=== PATIENT | female | born 1945 | race Caucasian/White ===

== ENCOUNTER 2022-03-27 13:18 | Emergency (ER) | payer MEDICARE, MEDICAID, SELFPAY ==
[2022-03-27 14:07] VITALS: BP 173/77; PULSE 106; RESP 18; TEMP 36.3; O2SAT 98; BMI 34.0
--- NOTE | 2022-03-27 16:50 | ED.WOUNDLAC ---
HPI - Wound/Laceration General Chief Complaint: Wound/Laceration Stated Complaint: post surgery, wound opened Time Seen by Provider: 03/27/22 16:31 Source: patient and family Mode of arrival: wheelchair Limitations: no limitations History of Present Illness HPI narrative: 76-year-old female who presents with wound to the left leg. 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 Intermittently over the last 3 years the wound has opened. Three weeks ago they noticed some opening of the wound to the left lower leg. There is some pain around the site. Patient denies any fevers, chills, numbness or tingling of the extremity. Family tells me that they moved her here from [place] in the last few weeks and the patient has no insurance or primary care doctor. Related Data Previous Rx's Medication Instructions Recorded doxycycline monohydrate 100 mg 100 mg PO BID #20 tabs 03/27/22 tablet Allergies Allergy/AdvReac Type Severity Reaction Status Date / Time No Known Allergies Allergy Verified 03/27/22 14:07 Review of Systems Review of Systems: Yes all other systems are reviewed and are negative Constitutional: Constitutional: Reports no additional constitutional complaints, Denies body ache(s), Denies chills, Denies fever(s), Denies headache(s) and Denies weakness Eyes: Eyes: Reports no additional eye complaints and Denies change in vision ENT: Reports system reviewed and no additional complaints, except as documented, Denies dizziness, Denies headache(s), Denies nasal congestion, Denies nasal discharge and Denies neck pain Cardiovascular: Cardiovascular: Reports no additional cardiovascular complaints, Denies chest pain, Denies leg edema and Denies dyspnea Respiratory: Respiratory: Reports no additional respiratory complaints, Denies cough and Denies dyspnea Gastrointestinal: Gastrointestinal: Reports no additional gastrointestinal complaints, Denies abdominal pain, Denies diarrhea, Denies nausea and Denies vomiting Genitourinary: Genitourinary: Reports no additional female genitourinary complaints and Denies urinary incontinence Musculoskeletal: Musculoskeletal: Reports no additional musculoskeletal complaints, Denies back pain, Denies arthralgias, Denies joint swelling, Denies neck pain, Denies numbness and Denies tingling Integumentary/Breasts: Skin/Breast: Reports system reviewed and no additional complaints, except as docu, Denies rash and Reports wounds Neurologic: Reports system reviewed and no additional complaints, except as documented, Denies Abnormal speech present, Denies dizziness, Denies headache(s), Denies numbness, Denies tingling and Denies weakness PMFSH Past Medical History Attestation statement: The following information was validated with the patient. Source: old records reviewed and nursing notes reviewed Social History Social History Advance Directives: No Advance Directives Information Provided: No Physical Exam Vital Signs: Vital Signs: Last Vital Signs Temp 97.4 F 03/27/22 14:07 Pulse 106 H 03/27/22 14:07 Resp 18 03/27/22 14:07 BP 173/77 H 03/27/22 14:07 Pulse Ox 98 03/27/22 14:07 O2 Del Method 03/27/22 14:07 BMI result Body Mass Index 34.0 Const: General: cooperative, healthy appearing, comfortable and no acute distress Orientation/consciousness: patient oriented x3 Limitations: no limitations HEENT: Head: Yes normal to inspection Ears: hearing grossly normal bilaterally General nose exam: Normal external nose present Face and sinus: Yes normal facial exam Mouth: Normal oral and palatal mucosa present Throat: Yes posterior oropharynx normal Eyes: General: appearance normal, both eyes and all related structures Pupils: Equal, round and reactive pupils present Neck: Neck: Yes normal visual inspection Chest: Chest palpation & inspection: normal inspection of the chest Resp: Effort & Inspection: normal respiratory effort Auscultation: clear to auscultation bilaterally Cardio: Rate: regular rate Rhythm: regular rhythm Peripheral pulses: Peripheral pulses 2+ throughout GI: Inspection: Yes normal to inspection Palpation (GI): Soft to palpation and nontender Auscultation: normal bowel sounds Back/Spine/Pelvis: Thoracic/Lumbar Spine: thoracic and lumbar spine normal to inspection Skin: General skin exam: no rashes or lesions noted Neuro: General: patient oriented x3, no focal motor deficits and normal sensation to monofilament Cranial nerves: Yes Equal, round and reactive pupils present Cognition (Neuro): normal cognition Speech: No Abnormal speech present Gait exam (Neuro): Normal gait present Motor exam (neuro): 5/5 motor strength present throughout Extrem: Other: No tenderness of the calf or foot. Palpable DP and PT pulses. Full range of motion of the affected joint. No warmth noted. NV intact distally MDM - Wound/Laceration MDM Narrative Medical decision making narrative: 76-year-old female here with a wound to the left lower leg with previous history of chronic wound with wound VAC and subsequent skin graft. There is some local erythema and tenderness around the wound. Therefore patient placed on antibiotics. She has no systemic signs or symptoms concerning for infection. She is well-appearing. She would benefit from wound care exceptionally a wound care clinic. Unfortunately she does not have insurance or primary care doctor since her daughter recently moved her here. Therefore she was given information on [employer] application and the financial services sales representative number. She plans on doing this tomorrow. I did review worrisome signs and symptoms with her and when to return to the emergency room. Comfortable plan for discharge home. Medical Records Attestation: I reviewed the patient's medical records. Lab Data Attestation: I reviewed the patient's lab results. Discharge Plan Discharge Clinical Impression: Leg wound, left Patient Disposition: Home, Self-Care Instructions: Wound Infection (ED), Acute Wounds (ED) Additional Instructions: Apply topical antibiotic ointment and keep the wound clean and dry Take the antibiotic with food. Follow-up with financial services sales representative tomorrow so that she may establish [facility] then establish a PCP then an appointment with wound care Prescriptions: New doxycycline monohydrate 100 mg tablet 100 mg PO BID Qty: 20 0RF Referrals: Physician,None [Primary Care Provider] - Interventions: ED Discharge Assessment Last Done: 03/27/22 17:03 Discharge Date/Time: 03/27/22 17:09 Print Language: Rwandan
== END 2022-03-27 17:09 | disposition home or self-care (01) ==
LOC: HO.ED 17:01
PROVIDERS: Emergency Provider Emergency Medicine
DX: S81.802A Unspecified open wound, left lower leg, initial encounter (principal); X58.XXXA Exposure to other specified factors, initial encounter; Y93.9 Activity, unspecified; Y92.89 Other specified places as the place of occurrence of the external cause; Y99.9 Unspecified external cause status
CPT/HCPCS: 99282; 99283

== ENCOUNTER 2022-06-26 13:24 | Inpatient (IN) | payer MEDICARE, MEDICAID, SELFPAY ==
--- NOTE | ~2022-06-26 | XR_ITS ---
EXAMINATION: XR TIBIA AND FIBULA, LEFT CLINICAL INFORMATION: Chronic wound, lower portion COMPARISON: None TECHNIQUE: AP and lateral views of the left tibia and fibula were obtained. FINDINGS: No acute fracture or dislocation. No ankle joint effusion. No osseous destructive change or aggressive periostitis. There is mild wavy unilaminar periosteal thickening along the posterior medial distal tibial metadiaphysis and posterior lateral aspect of the fibular diaphysis which is nonspecific and can be seen in the setting of chronic venous stasis. No tracking soft tissue gas. Mild subcutaneous edema/swelling. XR/XR tibia fibula LT 2V IMPRESSION: 1. No acute osseous injury or radiographic evidence of advanced osteomyelitis. 2. Nonspecific mild wavy unilaminar periosteal thickening along the distal tibial metadiaphysis and posterior lateral aspect of the fibular diaphysis, nonspecific and can be seen in the setting of chronic venous stasis for example. If there is high conical concern for early acute osteomyelitis, consider MRI or alternatively radiographic follow-up.
--- NOTE | 2022-06-26 14:28 | ED.GENADULT ---
HPI - General Adult General Chief complaint: Skin/Abscess/Foreign Body <KELSIE Palafox - Last Filed: 06/26/22 14:33> Stated complaint: wart on L leg, pain <KELSIE Palafox - Last Filed: 06/26/22 14:33> Time Seen by Provider: 06/26/22 18:18 <KELSIE Palafox - Last Filed: 06/26/22 14:33> Source: patient <Indra Vasquez MD - Last Filed: 06/27/22 00:48> Mode of arrival: ambulatory <Indra Vasquez MD - Last Filed: 06/27/22 00:48> Limitations: no limitations <Indra Vasquez MD - Last Filed: 06/27/22 00:48> History of Present Illness HPI narrative: Patient status post skin graft left pichardo 2 years ago after more surgery was done was doing okay for last 3 months the area get infected with purulent discharge patient unable to see any physician taking care of itself at home comes here as it is getting worse with purulent base and increased redness. No fever no chills <Indra Vasquez MD - Last Filed: 06/27/22 00:48> Related Data Home medications: Home Medications Medication Instructions Recorded Confirmed lisinopril 20 mg tablet 20 mg PO DAILY 06/26/22 06/26/22 <KELSIE Palafox - Last Filed: 06/26/22 14:33> Allergies/adverse reactions: Allergies Allergy/AdvReac Type Severity Reaction Status Date / Time vancomycin Allergy Unknown Verified 06/26/22 14:33 <KELSIE Palafox - Last Filed: 06/26/22 14:33> Review of Systems Review of Systems: Yes all other systems are reviewed and are negative <Indra Vasquez MD - Last Filed: 06/27/22 00:48> [facility] Past Medical History Medical History: Medical History (Updated 06/26/22 @ 23:26 by Magaly Ramey MD) Hypertension <KELSIE Palafox - Last Filed: 06/26/22 14:33> Surgical History: Surgical History (Updated 06/26/22 @ 23:26 by Magaly Ramey MD) History of skin graft <KELSIE Palafox - Last Filed: 06/26/22 14:33> Social History Social History: Social History Alcohol intake: never Smoked in Last 30 Days: No Use of substances other than those prescribed or required for medical reasons: No Advance Directives: No Advance Directives Information Provided: No <KELSIE Palafox - Last Filed: 06/26/22 14:33> Physical Exam ED Vital Signs: Vital Signs - 24 hr 06/26/22 14:29 06/26/22 18:45 06/26/22 20:00 Temperature 97.0 F 98.1 F Pulse Rate 106 H 100 105 H Respiratory Rate 18 16 14 Blood Pressure 139/68 184/74 H 161/80 H Pulse Oximetry 98 98 99 Oxygen Delivery Method Room Air Room Air Room Air BMI result Body Mass Index 26.5 <KELSIE Palafox - Last Filed: 06/26/22 14:33> Vital Signs - 24 hr 06/26/22 14:29 06/26/22 18:45 06/26/22 20:00 Temperature 97.0 F 98.1 F Pulse Rate 106 H 100 105 H Respiratory Rate 18 16 14 Blood Pressure 139/68 184/74 H 161/80 H Pulse Oximetry 98 98 99 Oxygen Delivery Method Room Air Room Air Room Air BMI result Body Mass Index 26.5 <Indra Vasquez MD - Last Filed: 06/27/22 00:48> Appearance: Alert. Oriented X3. No acute distress. Eyes: PERRLA, No Nystagmus ENT: Pharynx normal. Oral Mucosa moist Neck: Normal inspection. Neck supple. CVS: Normal heart rate and rhythm. Pulses normal. Respiratory: No respiratory distress. Equal air entry bilateral, no wheezing/rales/rhonchi Abdomen: Soft and nontender. Bowel sounds are present, no mass palpable, no CVA tenderness Skin: Skin warm and dry. Normal skin color. Normal skin turgor. Extremities: No lower extremity edema. No calf tenderness Neuro: Oriented X 3. No motor deficit. No sensory deficit.No cerebellar signs , cranial nerves II-XII intact <Indra Vasquez MD - Last Filed: 06/27/22 00:48> Course Course Course Narrative: RME - 77 y/o Romansh speaking female presenting for evaluation of a chronic wound on her left leg with increased pain and burning sensation. She has history of a skin graft and granddaughter reports the skin is now coming off. Not on any recent abx. No fevers at home. Partially visualized wound with erythema, yellow drainage. Tachycardic in triage but afebrile. Will get labs, cultures, XR for further evaluation. <KELSIE Palafox - Last Filed: 06/26/22 14:33> Medications Administered Generic Name Dose Route Start Last Admin Trade Name Freq PRN Reason Stop Dose Admin Enoxaparin Sodium 40 mg 06/26/22 21:30 06/26/22 21:39 Enoxaparin Sodium 40 Mg/0.4 Ml Syringe SUBCUT 40 mg Q24H PEPE Administration Linezolid 600 mg in 300 mls @ 300 mls/hr 06/26/22 21:30 06/26/22 23:25 Zyvox/D5w IV Infused Q12H PEPE Infusion Piperacillin Sod/Tazobactam 50 mls @ 100 mls/hr 06/26/22 21:30 06/26/22 22:19 Sod 3.375 gm/ Sodium Chloride IV Infused Q6H PEPE Infusion Lisinopril 20 mg 06/26/22 23:20 06/26/22 23:42 Lisinopril 20 Mg Tablet PO 20 mg DAILY PEPE Administration Protocol Sodium Chloride 3 ml 06/27/22 00:00 06/26/22 23:42 0.9 % Sodium Chloride Flush 3 Ml Syringe IVFLUSH 3 ml QSHIFT PEPE Administration Discontinued Medications Generic Name Dose Route Start Last Admin Trade Name Freq PRN Reason Stop Dose Admin Cefazolin Sodium 1 gm/ Sodium 50 mls @ 100 mls/hr 06/26/22 18:49 06/26/22 19:43 Chloride IV 06/26/22 19:18 Infused PREOP ONE Infusion Doxycycline Hyclate 100 mg/ 250 mls @ 166.67 mls/hr 06/26/22 18:49 06/26/22 21:19 Sodium Chloride IV 06/26/22 20:18 Infused ONCE ONE Infusion Sodium Chloride 1,000 mls @ 999 mls/hr 06/26/22 20:55 06/26/22 22:36 Ns IV 06/26/22 21:55 Infused .Q1H1M ONE Infusion Morphine Sulfate 4 mg 06/26/22 20:54 06/26/22 21:17 Morphine Sulfate 4 Mg/Ml Cartridge IVPUSH 06/26/22 20:55 4 mg ONCE ONE Administration Protocol Ondansetron HCl 4 mg 06/26/22 20:54 06/26/22 21:17 Ondansetron Hcl 4 Mg/2 Ml Vial IVPUSH 06/26/22 20:55 4 mg ONCE ONE Administration <KELSIE Palafox - Last Filed: 06/26/22 14:33> Medications Administered Generic Name Dose Route Start Last Admin Trade Name Freq PRN Reason Stop Dose Admin Enoxaparin Sodium 40 mg 06/26/22 21:30 06/26/22 21:39 Enoxaparin Sodium 40 Mg/0.4 Ml Syringe SUBCUT 40 mg Q24H PEPE Administration Linezolid 600 mg in 300 mls @ 300 mls/hr 06/26/22 21:30 06/26/22 23:25 Zyvox/D5w IV Infused Q12H PEPE Infusion Piperacillin Sod/Tazobactam 50 mls @ 100 mls/hr 06/26/22 21:30 06/26/22 22:19 Sod 3.375 gm/ Sodium Chloride IV Infused Q6H PEPE Infusion Lisinopril 20 mg 06/26/22 23:20 06/26/22 23:42 Lisinopril 20 Mg Tablet PO 20 mg DAILY PEPE Administration Protocol Sodium Chloride 3 ml 06/27/22 00:00 06/26/22 23:42 0.9 % Sodium Chloride Flush 3 Ml Syringe IVFLUSH 3 ml QSHIFT PEPE Administration Discontinued Medications Generic Name Dose Route Start Last Admin Trade Name Freaddie PRN Reason Stop Dose Admin Cefazolin Sodium 1 gm/ Sodium 50 mls @ 100 mls/hr 06/26/22 18:49 06/26/22 19:43 Chloride IV 06/26/22 19:18 Infused PREOP ONE Infusion Doxycycline Hyclate 100 mg/ 250 mls @ 166.67 mls/hr 06/26/22 18:49 06/26/22 21:19 Sodium Chloride IV 06/26/22 20:18 Infused ONCE ONE Infusion Sodium Chloride 1,000 mls @ 999 mls/hr 06/26/22 20:55 06/26/22 22:36 Ns IV 06/26/22 21:55 Infused .Q1H1M ONE Infusion Morphine Sulfate 4 mg 06/26/22 20:54 06/26/22 21:17 Morphine Sulfate 4 Mg/Ml Cartridge IVPUSH 06/26/22 20:55 4 mg ONCE ONE Administration Protocol Ondansetron HCl 4 mg 06/26/22 20:54 06/26/22 21:17 Ondansetron Hcl 4 Mg/2 Ml Vial IVPUSH 06/26/22 20:55 4 mg ONCE ONE Administration <Indra Vasquez MD - Last Filed: 06/27/22 00:48> Medical Decision Making Medical Decision Making MDM Narrative: Patient with nonhealing wound left leg negative for sepsis patient allergic to vancomycin least give her Ancef and doxycycline <Indra Vasquez MD - Last Filed: 06/27/22 00:48> Lab Data [facility] Lab Attestation statement: I reviewed the patient's lab results. <Indra Vasquez MD - Last Filed: 06/27/22 00:48> Result Diagrams: 06/26/22 16:49 06/26/22 16:49 <KELSIE Palafox - Last Filed: 06/26/22 14:33> Labs: Lab Results 06/26/22 06/26/22 06/26/22 Range/Units 16:49 16:49 16:49 WBC 8.6 (4.8-10.8) X10*3/uL RBC 3.74 L (4.20-5.50) X10*6/uL Hgb 10.5 L (12.0-16.0) g/dl Hct 33.5 L (37.0-47.0) % MCV 89.6 (80.0-98.0) fL MCH 28.1 (27.0-33.0) pg MCHC 31.3 (31.0-35.0) g/dl RDW 15.6 (11.0-16.0) % Plt Count 486 H (160-400) X10*3/uL MPV 9.3 L (9.4-12.3) fL Immature Gran % (Auto) 0.3 (0.0-0.4) % Neut % (Auto) 76.9 H (45-73) % Lymph % (Auto) 16.1 L (20-40) % [place] % (Auto) 5.5 (2-11) % Eos % (Auto) 0.9 (0-4) % Baso % (Auto) 0.3 (0-2) % Lymph # (Auto) 1.4 (1.2-4.9) X10*3/uL [place] # (Auto) 0.5 (0.1-1.2) X10*3/uL Eos # (Auto) 0.1 (0.0-0.4) X10*3/uL Baso # (Auto) 0.0 (0.0-0.2) X10*3/uL Abs Immat Gran (auto) 0.03 (0.00-0.03) X10*3/uL Absolute Neuts (auto) 6.6 (2.0-8.3) x10*3/uL Absolute Nucleated RBC 0.000 (0.0-0.012) X10*3/uL Nucleated RBC % (auto) 0.0 (0.0-0.2) /100WBC ESR 95 H (0-20) MM/HR Sodium 137 (135-145) mmol/L Potassium 4.4 (3.3-5.1) mmol/L Chloride 106 (96-108) mmol/L Carbon Dioxide 22 (22-29) mmol/L Anion Gap 13 (12-20) BUN 31 H (9-16) mg/dL Creatinine 1.15 (0.5-1.4) mg/dL Estim Creat Clear Calc 37.0 Estimated GFR 46 Random Glucose 131 H (60-115) mg/dL Lactic Acid (0.5-2.0) mmol/L Calcium 10.0 (8.4-10.2) mg/dL Magnesium 1.8 (1.6-2.6) mg/dL Total Bilirubin 0.3 (0.0-1.0) mg/dL Direct Bilirubin 0.2 (0.0-0.5) mg/dL AST 20 (5-31) U/L ALT 11 (0-31) U/L Alkaline Phosphatase 105 (39-117) U/L C-Reactive Protein 11.31 H (< or = 0.50) mg/dL Total Protein 8.1 H (6.5-8.0) g/dL Albumin 3.6 (3.5-5.0) g/dL COVID-19 (DEE) (Negative) COVID-19 Clin Com 06/26/22 06/26/22 Range/Units 16:49 17:33 WBC (4.8-10.8) X10*3/uL RBC (4.20-5.50) X10*6/uL Hgb (12.0-16.0) g/dl Hct (37.0-47.0) % MCV (80.0-98.0) fL MCH (27.0-33.0) pg MCHC (31.0-35.0) g/dl RDW (11.0-16.0) % Plt Count (160-400) X10*3/uL MPV (9.4-12.3) fL Immature Gran % (Auto) (0.0-0.4) % Neut % (Auto) (45-73) % Lymph % (Auto) (20-40) % [place] % (Auto) (2-11) % Eos % (Auto) (0-4) % Baso % (Auto) (0-2) % Lymph # (Auto) (1.2-4.9) X10*3/uL [place] # (Auto) (0.1-1.2) X10*3/uL Eos # (Auto) (0.0-0.4) X10*3/uL Baso # (Auto) (0.0-0.2) X10*3/uL Abs Immat Gran (auto) (0.00-0.03) X10*3/uL Absolute Neuts (auto) (2.0-8.3) x10*3/uL Absolute Nucleated RBC (0.0-0.012) X10*3/uL Nucleated RBC % (auto) (0.0-0.2) /100WBC ESR (0-20) MM/HR Sodium (135-145) mmol/L Potassium (3.3-5.1) mmol/L Chloride (96-108) mmol/L Carbon Dioxide (22-29) mmol/L Anion Gap (12-20) BUN (9-16) mg/dL Creatinine (0.5-1.4) mg/dL Estim Creat Clear Calc Estimated GFR Random Glucose (60-115) mg/dL Lactic Acid 1.5 (0.5-2.0) mmol/L Calcium (8.4-10.2) mg/dL Magnesium (1.6-2.6) mg/dL Total Bilirubin (0.0-1.0) mg/dL Direct Bilirubin (0.0-0.5) mg/dL AST (5-31) U/L ALT (0-31) U/L Alkaline Phosphatase (39-117) U/L C-Reactive Protein (< or = 0.50) mg/dL Total Protein (6.5-8.0) g/dL Albumin (3.5-5.0) g/dL COVID-19 (DEE) Negative (Negative) COVID-19 Clin Com See Note <KELSIE Palafox - Last Filed: 06/26/22 14:33> Lab Results 06/26/22 06/26/22 06/26/22 Range/Units 16:49 16:49 16:49 WBC 8.6 (4.8-10.8) X10*3/uL RBC 3.74 L (4.20-5.50) X10*6/uL Hgb 10.5 L (12.0-16.0) g/dl Hct 33.5 L (37.0-47.0) % MCV 89.6 (80.0-98.0) fL MCH 28.1 (27.0-33.0) pg MCHC 31.3 (31.0-35.0) g/dl RDW 15.6 (11.0-16.0) % Plt Count 486 H (160-400) X10*3/uL MPV 9.3 L (9.4-12.3) fL Immature Gran % (Auto) 0.3 (0.0-0.4) % Neut % (Auto) 76.9 H (45-73) % Lymph % (Auto) 16.1 L (20-40) % [place] % (Auto) 5.5 (2-11) % Eos % (Auto) 0.9 (0-4) % Baso % (Auto) 0.3 (0-2) % Lymph # (Auto) 1.4 (1.2-4.9) X10*3/uL [place] # (Auto) 0.5 (0.1-1.2) X10*3/uL Eos # (Auto) 0.1 (0.0-0.4) X10*3/uL Baso # (Auto) 0.0 (0.0-0.2) X10*3/uL Abs Immat Gran (auto) 0.03 (0.00-0.03) X10*3/uL Absolute Neuts (auto) 6.6 (2.0-8.3) x10*3/uL Absolute Nucleated RBC 0.000 (0.0-0.012) X10*3/uL Nucleated RBC % (auto) 0.0 (0.0-0.2) /100WBC ESR 95 H (0-20) MM/HR Sodium 137 (135-145) mmol/L Potassium 4.4 (3.3-5.1) mmol/L Chloride 106 (96-108) mmol/L Carbon Dioxide 22 (22-29) mmol/L Anion Gap 13 (12-20) BUN 31 H (9-16) mg/dL Creatinine 1.15 (0.5-1.4) mg/dL Estim Creat Clear Calc 37.0 Estimated GFR 46 Random Glucose 131 H (60-115) mg/dL Lactic Acid (0.5-2.0) mmol/L Calcium 10.0 (8.4-10.2) mg/dL Magnesium 1.8 (1.6-2.6) mg/dL Total Bilirubin 0.3 (0.0-1.0) mg/dL Direct Bilirubin 0.2 (0.0-0.5) mg/dL AST 20 (5-31) U/L ALT 11 (0-31) U/L Alkaline Phosphatase 105 (39-117) U/L C-Reactive Protein 11.31 H (< or = 0.50) mg/dL Total Protein 8.1 H (6.5-8.0) g/dL Albumin 3.6 (3.5-5.0) g/dL COVID-19 (DEE) (Negative) COVID-19 Clin Com 06/26/22 06/26/22 Range/Units 16:49 17:33 WBC (4.8-10.8) X10*3/uL RBC (4.20-5.50) X10*6/uL Hgb (12.0-16.0) g/dl Hct (37.0-47.0) % MCV (80.0-98.0) fL MCH (27.0-33.0) pg MCHC (31.0-35.0) g/dl RDW (11.0-16.0) % Plt Count (160-400) X10*3/uL MPV (9.4-12.3) fL Immature Gran % (Auto) (0.0-0.4) % Neut % (Auto) (45-73) % Lymph % (Auto) (20-40) % [place] % (Auto) (2-11) % Eos % (Auto) (0-4) % Baso % (Auto) (0-2) % Lymph # (Auto) (1.2-4.9) X10*3/uL [place] # (Auto) (0.1-1.2) X10*3/uL Eos # (Auto) (0.0-0.4) X10*3/uL Baso # (Auto) (0.0-0.2) X10*3/uL Abs Immat Gran (auto) (0.00-0.03) X10*3/uL Absolute Neuts (auto) (2.0-8.3) x10*3/uL Absolute Nucleated RBC (0.0-0.012) X10*3/uL Nucleated RBC % (auto) (0.0-0.2) /100WBC ESR (0-20) MM/HR Sodium (135-145) mmol/L Potassium (3.3-5.1) mmol/L Chloride (96-108) mmol/L Carbon Dioxide (22-29) mmol/L Anion Gap (12-20) BUN (9-16) mg/dL Creatinine (0.5-1.4) mg/dL Estim Creat Clear Calc Estimated GFR Random Glucose (60-115) mg/dL Lactic Acid 1.5 (0.5-2.0) mmol/L Calcium (8.4-10.2) mg/dL Magnesium (1.6-2.6) mg/dL Total Bilirubin (0.0-1.0) mg/dL Direct Bilirubin (0.0-0.5) mg/dL AST (5-31) U/L ALT (0-31) U/L Alkaline Phosphatase (39-117) U/L C-Reactive Protein (< or = 0.50) mg/dL Total Protein (6.5-8.0) g/dL Albumin (3.5-5.0) g/dL COVID-19 (DEE) Negative (Negative) COVID-19 Clin Com See Note <Indra Vasquez MD - Last Filed: 06/27/22 00:48> Discharge Plan Discharge Clinical Impression: Leg wound, left, Cellulitis <KELSIE Palafox - Last Filed: 06/26/22 14:33> Patient Disposition: Admitted As Inpatient <KELSIE Palafox - Last Filed: 06/26/22 14:33>
[2022-06-26 14:29] VITALS: BP 139/68; PULSE 106; RESP 18; TEMP 36.1; O2SAT 98; BMI 26.5
[2022-06-26 16:58] LABS: MANUAL DIFF FLAG NO
[2022-06-26 17:01] LABS: Basophils Percent Auto 0.3 % (0-2); Eosinophils Absolute Auto 0.1 X10*3/uL (0.0-0.4); Eosinophils Percent Auto 0.9 % (0-4); Hematocrit 33.5 % (37.0-47.0); Hemoglobin 10.5 g/dl (12.0-16.0); Imm Gran Abs Auto 0.03 X10*3/uL (0.00-0.03); Imm Gran Pct Auto 0.3 % (0.0-0.4); Lymphocytes Absolute Auto 1.4 X10*3/uL (1.2-4.9); Lymphocytes Percent Auto 16.1 % (20-40); Mean Corpuscular HGB Conc 31.3 g/dl (31.0-35.0); Mean Corpuscular Hemoglobin 28.1 pg (27.0-33.0); Mean Corpuscular Volume 89.6 fL (80.0-98.0); Mean Platelet Volume 9.3 fL (9.4-12.3); Monocytes Absolute Auto 0.5 X10*3/uL (0.1-1.2); Monocytes Percent Auto 5.5 % (2-11); Neutrophils Absolute Auto 6.6 x10*3/uL (2.0-8.3); Neutrophils Percent Auto 76.9 % (45-73); Platelet Count 486 X10*3/uL (160-400); Red Blood Count 3.74 X10*6/uL (4.20-5.50); Red Cell Distribution Width 15.6 % (11.0-16.0); White Blood Count 8.6 X10*3/uL (4.8-10.8)
[2022-06-26 17:24] LABS: Lactic Acid 1.5 mmol/L (0.5-2.0)
[2022-06-26 17:30] LABS: Alanine Aminotransferase 11 U/L (0-31); Albumin Level 3.6 g/dL (3.5-5.0); Alkaline Phosphatase 105 U/L (39-117); Anion Gap 13 (12-20); Aspartate Amino Transferase 20 U/L (5-31); Bilirubin Direct 0.2 mg/dL (0.0-0.5); Bilirubin Total 0.3 mg/dL (0.0-1.0); Blood Urea Nitrogen 31 mg/dL (9-16); C Reactive Protein 11.31 mg/dL (< or = 0.50); Carbon Dioxide 22 mmol/L (22-29); Chloride 106 mmol/L (96-108); Estimated Glomerular Filt Rate 46; Glucose Random 131 mg/dL (60-115); Magnesium 1.8 mg/dL (1.6-2.6); Potassium 4.4 mmol/L (3.3-5.1); Sodium 137 mmol/L (135-145); Total Protein 8.1 g/dL (6.5-8.0)
[2022-06-26 17:44] LABS: Erythrocyte Sedimentation Rate 95 MM/HR (0-20)
[2022-06-26 17:55] LABS: COVID-19 Test Negative (Negative); IDNOW Serial# 16C4AD1C
--- NOTE | 2022-06-26 18:44 | MHC.EDTECH ---
this pct just assumed care of pt ,vitals sign taken ,rn julissa is aware of pt high bp ,pt granddaughter at bed side ,call cline within reach .
[2022-06-26 18:45] VITALS: BP 184/74; PULSE 100; RESP 16; TEMP 36.7; O2SAT 98
--- NOTE | 2022-06-26 19:22 | PHA.MEDREC ---
Pharmacy Consult ? Medication Reconciliation Pharmacy has completed the medication reconciliation.
[2022-06-26] MEDS: Doxycycline Hyclate 100 MG in 0.9 % Sodium Chloride 250 ML 166.67 MG IV (19:46)
[2022-06-26 20:00] VITALS: BP 161/80; PULSE 105; RESP 14; O2SAT 99
[2022-06-26] MEDS: ondansetron HCL 4 MG/2 ML VIAL IVPUSH (21:17)
[2022-06-26] MEDS: Morphine Sulfate 4 MG/ML CARTRIDGE IVPUSH (21:17)
[2022-06-26] MEDS: 0.9 % Sodium Chloride 1,000 ML 999 ML IV (21:18)
--- NOTE | 2022-06-26 21:23 | P.HPHOSP_ITS ---
History of Present Illness Date of Service: 06/26/22 Chief Complaint: leg pain 77-year-old female with past medical history of hypertension presents to the hospital with complaints of left lower extremity pain. Patient is mostly Citizen Of [place] speaking, the history is obtained with the help of her granddaughter who lives with her and is at bedside. Patient apparently had a left lower extremity mole about 3 years ago, resected with complications, and was given a synthetic skin graft with a final surgery about 2 years ago. this procedure was done in [place]. per patient about 3 months ago she started having leg pain, a small wound and progressively worsening drainage and redness in the left lower extremity. They were seen at in the ED in March and at that time were discharged on p.o. antibiotics, and was given referral to wound clinic. At that time patient did not have insurance and therefore did not follow-up with wound care or primary care. she reports that she finally has insurance and therefore given the worsening wound and her leg she decided to come to the hospital. She denies any fever, no chills, no chest pain or shortness of breath, no cough no abdominal pain nausea or vomiting, no diarrhea constipation, no urinary symptoms and no lower extremity edema On arrival to the ED patient hemodynamically stable slightly labs are significant for WBC count of 8.6, hemoglobin of 10.5, hematocrit 33.5, ESR of 95, CRP of 11.31, urine is positive for nitrites but she denies any uri nary symptoms. X-ray of the tibia/fibula shows no acute osseous injury or radiographic evidence of advanced osteomyelitis, nonspecific mild wavy Uni laminae or periosteal thickening along the distal tibial metadiaphysis and posterior lateral aspect of the fibular diaphysis nonspecific and can be seen with chronic venous stasis patient started on antibiotics so be admitted for further management Review of Systems Review of Systems: Yes all other systems are reviewed and are negative [facility] Medical History (Updated 06/26/22 @ 23:26 by Magaly Ramey MD) Hypertension Surgical History (Updated 06/26/22 @ 23:26 by Magaly Ramey MD) History of skin graft Social History Alcohol intake: never Smoked in Last 30 Days: No Use of substances other than those prescribed or required for medical reasons: No Advance Directives: No Advance Directives Information Provided: No Meds Allergies Allergy/AdvReac Type Severity Reaction Status Date / Time vancomycin Allergy Unknown Verified 06/26/22 14:33 Active Medications: Current Medications Sodium Chloride (Ns) 1,000 mls @ 999 mls/hr IV .Q1H1M ONE Stop: 06/26/22 21:55 Last Admin: 06/26/22 21:18 Dose: 999 mls/hr Linezolid (Zyvox/D5w) 600 mg in 300 mls @ 300 mls/hr IV Q12H PEPE Piperacillin Sod/Tazobactam (Sod 3.375 gm/ Sodium Chloride) 50 mls @ 100 mls/hr IV Q6H PEPE Home Medications Medication Instructions Recorded Confirmed Last Taken Type lisinopril 20 mg tablet 20 mg PO DAILY 06/26/22 06/26/22 06/26/22 History Physical Exam Vital Signs and Narrative: Vital Signs: Last Vital Signs Temp 98.1 F 06/26/22 18:45 Pulse 105 H 06/26/22 20:00 Resp 14 06/26/22 20:00 BP 161/80 H 06/26/22 20:00 Pulse Ox 99 06/26/22 20:00 O2 Del Method 06/26/22 20:00 BMI result Body Mass Index 26.5 Const: General: cooperative and no acute distress Orientation/consciousness: patient oriented x3 Eyes: General: appearance normal, both eyes and all related structures Resp: Effort & Inspection: normal respiratory effort Auscultation: clear to auscultation bilaterally Cardio: Rate: regular rate Rhythm: regular rhythm GI: Palpation (GI): Soft to palpation Auscultation: normal bowel sounds Skin: Other: left lower extremity open wound, along the medial aspect ofshin extending from the foot all the way to the mid leg erythematous, warm, serosanguineous drainage General skin exam: no rashes or lesions noted Neuro: General: patient oriented x3 Cognition (Neuro): normal cognition Extrem: Other: see skin General: Yes no pedal edema Results Labs 06/26/22 16:49 06/26/22 16:49 Labs: Laboratory Results - last 24 hr 06/26/22 06/26/22 06/26/22 16:49 16:49 16:49 MCV 89.6 MCH 28.1 MCHC 31.3 RDW 15.6 Plt Count 486 H MPV 9.3 L Immature Gran % (Auto) 0.3 Neut % (Auto) 76.9 H Lymph % (Auto) 16.1 L [place] % (Auto) 5.5 Eos % (Auto) 0.9 Baso % (Auto) 0.3 Lymph # (Auto) 1.4 [place] # (Auto) 0.5 Eos # (Auto) 0.1 Baso # (Auto) 0.0 Abs Immat Gran (auto) 0.03 Absolute Neuts (auto) 6.6 Absolute Nucleated RBC 0.000 Nucleated RBC % (auto) 0.0 ESR 95 H Anion Gap 13 Estim Creat Clear Calc 37.0 Estimated GFR 46 Random Glucose 131 H Lactic Acid Calcium 10.0 Magnesium 1.8 Total Bilirubin 0.3 Direct Bilirubin 0.2 AST 20 ALT 11 Alkaline Phosphatase 105 C-Reactive Protein 11.31 H Total Protein 8.1 H Albumin 3.6 COVID-19 (DEE) COVID-19 [employer] 06/26/22 06/26/22 16:49 17:33 MCV MCH MCHC RDW Plt Count MPV Immature Gran % (Auto) Neut % (Auto) Lymph % (Auto) [place] % (Auto) Eos % (Auto) Baso % (Auto) Lymph # (Auto) [place] # (Auto) Eos # (Auto) Baso # (Auto) Abs Immat Gran (auto) Absolute Neuts (auto) Absolute Nucleated RBC Nucleated RBC % (auto) ESR Anion Gap Estim Creat Clear Calc Estimated GFR Random Glucose Lactic Acid 1.5 Calcium Magnesium Total Bilirubin Direct Bilirubin AST ALT Alkaline Phosphatase C-Reactive Protein Total Protein Albumin COVID-19 (DEE) Negative COVID-19 Clin Com See Note Imaging Radiologist's Impressions: Impressions Tibia/Fibula X-Ray 06/26/22 14:50 IMPRESSION: 1. No acute osseous injury or radiographic evidence of advanced osteomyelitis. 2. Nonspecific mild wavy unilaminar periosteal thickening along the distal tibial metadiaphysis and posterior lateral aspect of the fibular diaphysis, nonspecific and can be seen in the setting of chronic venous stasis for example. If there is high conical concern for early acute osteomyelitis, consider MRI or alternatively radiographic follow-up. Assessment and Plan (1) Leg wound, left: Status: Acute (2) Cellulitis: Status: Acute Plan 77-year-old female history of skin graft to the left lower extremity presents to the hospital with worsening wound # acute on left lower extremity wound - history of skin graft at the site - erythema, warmth, drainage - Elevated inflammatory markers - will treat with IV antibiotics - follow cultures - infectious disease consult # hypertension - elevated - continue home medication DVT prophylaxis: Lovenox given patient's need for IV antibiotics she will require minimum 2 nights inpatient hospital stay for further management and monitoring Time Spent With Patient Time: Total time managing care of this patient today ____ minutes. Quality Stroke Does the patient have a stroke diagnosis?: No VTE Prior VTE?: No VTE Risk Level:: Medical - moderate - high VTE Device Contraindication: Treatment Not Indicated VTE Drug Contraindication: N/A - Med Ordered
--- NOTE | 2022-06-26 21:28 | PC.NURSE ---
Assisted pt in emptying urostomy bag. Urine was dark yellow with an odor. Urines collected and sent to the lab. Pt is calm and comfortable at this time. No new orders.
[2022-06-26] MEDS: Piperacillin Sodium/Tazobactam 3.375 GM in 0.9 % Sodium Chloride 50 ML IV (21:38)
[2022-06-26] MEDS: Enoxaparin Sodium 40 MG/0.4 ML SYRINGE SUBCUT (21:39)
[2022-06-26 21:41] LABS: Appearance Urine Clear; Color Urine Yellow; Glucose Urine UA Negative (Negative); Leukocyte Esterase Urine Negative (Negative); Nitrite Urine Positive (Negative); Specific Gravity - Urine 1.025 (1.005-1.025); UMIC TRIGGER UACC YES; Urine Blood Negative (Negative); Urine Ketones Negative (Negative); Urine Protein Negative (Neg-Trace)
[2022-06-26 22:04] LABS: Bacteria Urine 2+ (None Seen); RBC Urine 0-2 /HPF (0-2); Squamous Epithelial Cell Urine 0-2 /HPF (0-2); UACC Culture Trigger YES; WBC Urine 0-5 /HPF (0-5)
[2022-06-26] MEDS: Linezolid/D5W 600 MG/300 ML PIGGYBACK 300 MG IV (22:19)
[2022-06-26] MEDS: lisinopriL 20 MG TABLET PO (23:42)
[2022-06-26] MEDS: 0.9 % Sodium Chloride Flush 3 ML SYRINGE IVFLUSH (23:42)
[2022-06-27 00:06] VITALS: BP 127/66; PULSE 87; RESP 15; O2SAT 99
[2022-06-27 02:56] VITALS: BP 127/70; PULSE 89; RESP 15; O2SAT 99
[2022-06-27] MEDS: Piperacillin Sodium/Tazobactam 3.375 GM in 0.9 % Sodium Chloride 50 ML IV ×4 (03:12→20:45)
--- NOTE | 2022-06-27 03:14 | PC.NURSE ---
Pt urostomy emptied. 325mL, light yellow color.
[2022-06-27 06:15] VITALS: BP 155/75; PULSE 92; RESP 14; O2SAT 99
[2022-06-27 06:30] LABS: MANUAL DIFF FLAG NO
[2022-06-27 06:40] LABS: Basophils Percent Auto 0.5 % (0-2); Eosinophils Absolute Auto 0.1 X10*3/uL (0.0-0.4); Eosinophils Percent Auto 2.3 % (0-4); Hematocrit 29.9 % (37.0-47.0); Hemoglobin 9.2 g/dl (12.0-16.0); Imm Gran Abs Auto 0.02 X10*3/uL (0.00-0.03); Imm Gran Pct Auto 0.3 % (0.0-0.4); Lymphocytes Absolute Auto 1.3 X10*3/uL (1.2-4.9); Lymphocytes Percent Auto 21.7 % (20-40); Mean Corpuscular HGB Conc 30.8 g/dl (31.0-35.0); Mean Corpuscular Hemoglobin 28.6 pg (27.0-33.0); Mean Corpuscular Volume 92.9 fL (80.0-98.0); Mean Platelet Volume 9.7 fL (9.4-12.3); Monocytes Absolute Auto 0.5 X10*3/uL (0.1-1.2); Monocytes Percent Auto 8.9 % (2-11); Neutrophils Percent Auto 66.3 % (45-73); Platelet Count 416 X10*3/uL (160-400); Red Blood Count 3.22 X10*6/uL (4.20-5.50); Red Cell Distribution Width 15.7 % (11.0-16.0)
[2022-06-27 06:47] LABS: Anion Gap 9 (12-20); Blood Urea Nitrogen 23 mg/dL (9-16); Carbon Dioxide 22 mmol/L (22-29); Chloride 112 mmol/L (96-108); Creatinine Clr Calc Pharmacy 39.8; Estimated Glomerular Filt Rate 50; Glucose Random 88 mg/dL (60-115); Potassium 4.7 mmol/L (3.3-5.1); Sodium 138 mmol/L (135-145)
[2022-06-27] MEDS: lisinopriL 20 MG TABLET PO (10:07)
[2022-06-27] MEDS: 0.9 % Sodium Chloride Flush 3 ML SYRINGE IVFLUSH ×2 (10:10→23:07)
[2022-06-27] MEDS: Linezolid/D5W 600 MG/300 ML PIGGYBACK 300 MG IV ×2 (10:13→20:46)
--- NOTE | 2022-06-27 13:45 | PC.NURSE ---
dressing changed with dr maya.Xeroform applied following by a non-stick gauze and wrapped in gauze.
[2022-06-27 14:07] VITALS: BP 147/70; PULSE 102; RESP 16; TEMP 36.8; O2SAT 96
--- NOTE | 2022-06-27 15:25 | HO.PM.IMPN ---
Subjective Subjective Date of Service: 06/27/22 Interval History: All information gleaned by subacute nurse: No acute issues overnight. No pain in wound Review of Systems Denies chest pain Denies shortness of breath Denies nausea vomiting diarrhea Denies fever chills Physical Exam Vital Signs: Vital Signs: Last Vital Signs Temp 98.2 F 06/27/22 14:07 Pulse 102 H 06/27/22 14:07 Resp 16 06/27/22 14:07 BP 147/70 H 06/27/22 14:07 Pulse Ox 96 06/27/22 14:07 O2 Del Method 06/27/22 14:07 BMI result Body Mass Index 26.5 Const: Other: Awake alert no acute distress Resp: Other: Clear to auscultation bilaterally no rales rhonchi or wheezes Cardio: Other: No S4; positive S1-S2; S3 murmurs rubs or gallops GI: Other: Soft nontender nondistended normoactive bowel sounds Extrem: Other: Graft site left lower extremity excoriated and weepy with serosanguineous drainage. Assistance medial aspect of left lower leg from essentially mid calf to malleolus Objective Data Active Medications Acetaminophen (Acetaminophen 325 Mg Tablet) 650 mg PO Q6H PRN PRN Reason: Pain, Mild (Pain Scale 1-3) Docusate Sodium (Docusate Sodium 100 Mg Capsule) 100 mg PO DAILY PRN PRN Reason: Constipation Enoxaparin Sodium (Enoxaparin Sodium 40 Mg/0.4 Ml Syringe) 40 mg SUBCUT Q24H [facility] Last Admin: 06/26/22 21:39 Dose: 40 mg Documented By: CARMENZA Linezolid (Zyvox/D5w) 600 mg in 300 mls @ 300 mls/hr IV Q12H [facility] Last Infusion: 06/27/22 11:51 Dose: 0 mls/hr Documented By: AMI Piperacillin Sod/Tazobactam (Sod 3.375 gm/ Sodium Chloride) 50 mls @ 100 mls/hr IV Q6H [facility] Last Infusion: 06/27/22 10:40 Dose: 0 mls/hr Documented By: AMI Lisinopril (Lisinopril 20 Mg Tablet) 20 mg PO DAILY [facility]; Protocol Last Admin: 06/27/22 10:07 Dose: 20 mg Documented By: AMI Ondansetron HCl (Ondansetron Hcl 4 Mg/2 Ml Vial) 4 mg IVPUSH Q8H PRN PRN Reason: Nausea and Vomiting Oxycodone HCl (Oxycodone Hcl Immed Release 5 Mg Tablet) 5 mg PO Q6H PRN PRN Reason: Pain, Severe (Pain Scale 7-10) Sodium Chloride (0.9 % Sodium Chloride Flush 3 Ml Syringe) 3 ml IVFLUSH QSHICHI [facility] Last Admin: 06/27/22 10:10 Dose: 3 ml Documented By: AMI Labs 06/27/22 05:56 06/27/22 05:56 Labs: Laboratory Results - last 24 hr 06/26/22 06/26/22 06/26/22 16:49 16:49 16:49 MCV 89.6 MCH 28.1 MCHC 31.3 RDW 15.6 Plt Count 486 H MPV 9.3 L Immature Gran % (Auto) 0.3 Neut % (Auto) 76.9 H Lymph % (Auto) 16.1 L [place] % (Auto) 5.5 Eos % (Auto) 0.9 Baso % (Auto) 0.3 Lymph # (Auto) 1.4 [place] # (Auto) 0.5 Eos # (Auto) 0.1 Baso # (Auto) 0.0 Abs Immat Gran (auto) 0.03 Absolute Neuts (auto) 6.6 Absolute Nucleated RBC 0.000 Nucleated RBC % (auto) 0.0 ESR 95 H Anion Gap 13 Estim Creat Clear Calc 37.0 Estimated GFR 46 Random Glucose 131 H Lactic Acid Calcium 10.0 Magnesium 1.8 Total Bilirubin 0.3 Direct Bilirubin 0.2 AST 20 ALT 11 Alkaline Phosphatase 105 C-Reactive Protein 11.31 H Total Protein 8.1 H Albumin 3.6 Urine Color Urine Appearance Urine pH Ur Specific [place] Urine Protein Urine Glucose (UA) Urine Ketones Urine Blood Urine Nitrite Ur Leukocyte Esterase Urine RBC Urine WBC Ur Squamous Epith Cells Urine Bacteria Hyaline Casts COVID-19 (DEE) COVID-19 Clin Com 06/26/22 06/26/22 06/26/22 16:49 17:33 21:27 MCV MCH MCHC RDW Plt Count MPV Immature Gran % (Auto) Neut % (Auto) Lymph % (Auto) [place] % (Auto) Eos % (Auto) Baso % (Auto) Lymph # (Auto) [place] # (Auto) Eos # (Auto) Baso # (Auto) Abs Immat Gran (auto) Absolute Neuts (auto) Absolute Nucleated RBC Nucleated RBC % (auto) ESR Anion Gap Estim Creat Clear Calc Estimated GFR Random Glucose Lactic Acid 1.5 Calcium Magnesium Total Bilirubin Direct Bilirubin AST ALT Alkaline Phosphatase C-Reactive Protein Total Protein Albumin Urine Color Yellow Urine Appearance Clear Urine pH 5.0 Ur Specific [place] 1.025 Urine Protein Negative Urine Glucose (UA) Negative Urine Ketones Negative Urine Blood Negative Urine Nitrite Positive H Ur Leukocyte Esterase Negative Urine RBC 0-2 Urine WBC 0-5 Ur Squamous Epith Cells 0-2 Urine Bacteria 2+ Hyaline Casts 6-10 COVID-19 (DEE) Negative COVID-19 Clin Com See Note 06/27/22 06/27/22 05:56 05:56 MCV 92.9 MCH 28.6 MCHC 30.8 L RDW 15.7 Plt Count 416 H MPV 9.7 Immature Gran % (Auto) 0.3 Neut % (Auto) 66.3 Lymph % (Auto) 21.7 [place] % (Auto) 8.9 Eos % (Auto) 2.3 Baso % (Auto) 0.5 Lymph # (Auto) 1.3 [place] # (Auto) 0.5 Eos # (Auto) 0.1 Baso # (Auto) 0.0 Abs Immat Gran (auto) 0.02 Absolute Neuts (auto) 4.0 Absolute Nucleated RBC 0.000 Nucleated RBC % (auto) 0.0 ESR Anion Gap 9 L Estim Creat Clear Calc 39.8 Estimated GFR 50 Random Glucose 88 Lactic Acid Calcium 9.0 D Magnesium Total Bilirubin Direct Bilirubin AST ALT Alkaline Phosphatase C-Reactive Protein Total Protein Albumin Urine Color Urine Appearance Urine pH Ur Specific [place] Urine Protein Urine Glucose (UA) Urine Ketones Urine Blood Urine Nitrite Ur Leukocyte Esterase Urine RBC Urine WBC Ur Squamous Epith Cells Urine Bacteria Hyaline Casts COVID-19 (DEE) COVID-19 Clin Com Microbiology Microbiology Results: Microbiology 06/26/22 22:05 Urine Culture - Preliminary Urine clean catch - Urine malagon top Culture too young to evaluate. Assessment and Plan (1) Cellulitis: Status: Acute (2) Hypertension: Status: Acute Plan 77-year-old [place]-speaking female presents with complaints of left lower extremity infection. Approximately 3 years ago had a mole removed which developed complications requiring skin graft with the final surgery 2 years ago. Presents with an open excoriated/weepy area mid left gastrocs to medial malleoli. 1. Cellulitis left lower extremity -continue linezolid/Zosyn (vancomycin allergy) -Xeroform dressing daily -ID/wound care consult 2. Hypertension -acceptable control current therapies -adjust as indicated Full code Sunx Patient will require ongoing hospitalization for IV antibiotics to treat a left lower extremity cellulitis that has failed outpatient therapies Time Spent With Patient Time: Total time managing care of this patient today ____ minutes. Quality Stroke Does the patient have a stroke diagnosis?: No VTE Prior VTE?: No VTE Risk Level:: Medical - moderate - high VTE Device Contraindication: Treatment Not Indicated VTE Drug Contraindication: N/A - Med Ordered
[2022-06-27 15:57] VITALS: BP 155/67; PULSE 102; RESP 18; TEMP 36.1; O2SAT 98
[2022-06-27] MEDS: oxyCODONE HCl Immed Release 5 MG TABLET PO (16:05)
[2022-06-27 20:00] VITALS: BP 143/63; PULSE 102; RESP 18; TEMP 36; O2SAT 98
[2022-06-27] MEDS: Acetaminophen 325 MG TABLET 650 MG PO (20:44)
[2022-06-27] MEDS: Docusate Sodium 100 MG CAPSULE PO (20:44)
[2022-06-27] MEDS: Enoxaparin Sodium 40 MG/0.4 ML SYRINGE SUBCUT (20:45)
[2022-06-28] VITALS (7 sets, daily range): BP systolic 115–149; BP diastolic 57–69; PULSE 88–106; RESP 16–18; TEMP 36.6–36.9; O2SAT 95–99
[2022-06-28] MEDS: Piperacillin Sodium/Tazobactam 3.375 GM in 0.9 % Sodium Chloride 50 ML IV ×4 (02:47→20:43)
[2022-06-28] MEDS: oxyCODONE HCl Immed Release 5 MG TABLET PO ×2 (06:47→20:25)
[2022-06-28] MEDS: 0.9 % Sodium Chloride Flush 3 ML SYRINGE IVFLUSH ×3 (08:45→23:35)
[2022-06-28] MEDS: lisinopriL 20 MG TABLET PO (08:45)
--- NOTE | 2022-06-28 08:57 | MHC.CM.PN ---
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
[2022-06-28] MEDS: Linezolid/D5W 600 MG/300 ML PIGGYBACK 300 MG IV ×2 (10:24→21:38)
--- NOTE | 2022-06-28 14:46 | P.CNID_ITS ---
History of Present Illness Data of Consult Service Date: 06/28/22 Requesting physician: Igor Price Primary Care Provider: None Physician HPI She presents with left leg swelling and pain. There is reddened area lower extremity. She came from [place] originally and then [place] and was seen in ER in March for leg redness and given Doxycycline. According to patient area became red over last week. She has no fever or chills. She has had skin graft in past. Review of Systems Review of Systems: Yes all other systems are reviewed and are negative [facility] Past Medical History Medical History Hypertension Family History Family history: reviewed and not pertinent Surgical History Surgical History History of skin graft Social History Social History Household Members: Other Household Members Other:: granddaughter Housing: House Do you presently have visiting nurse or other home services: No Alcohol intake: never Patient Tobacco Use Status: Never used Tobacco Meds Allergies Allergy/AdvReac Type Severity Reaction Status Date / Time vancomycin Allergy Unknown Verified 06/26/22 14:33 Active Medications: Current Medications Acetaminophen (Acetaminophen 325 Mg Tablet) 650 mg PO Q6H PRN PRN Reason: Pain, Mild (Pain Scale 1-3) Last Admin: 06/27/22 20:44 Dose: 650 mg Docusate Sodium (Docusate Sodium 100 Mg Capsule) 100 mg PO DAILY PRN PRN Reason: Constipation Last Admin: 06/27/22 20:44 Dose: 100 mg Enoxaparin Sodium (Enoxaparin Sodium 40 Mg/0.4 Ml Syringe) 40 mg SUBCUT Q24H [facility] Last Admin: 06/27/22 20:45 Dose: 40 mg Linezolid (Zyvox/D5w) 600 mg in 300 mls @ 300 mls/hr IV Q12H [facility] Last Infusion: 06/28/22 12:02 Dose: Infused Piperacillin Sod/Tazobactam (Sod 3.375 gm/ Sodium Chloride) 50 mls @ 100 mls/hr IV Q6H [facility] Last Infusion: 06/28/22 09:37 Dose: Infused Lisinopril (Lisinopril 20 Mg Tablet) 20 mg PO DAILY [facility]; Protocol Last Admin: 06/28/22 08:45 Dose: 20 mg Ondansetron HCl (Ondansetron Hcl 4 Mg/2 Ml Vial) 4 mg IVPUSH Q8H PRN PRN Reason: Nausea and Vomiting Oxycodone HCl (Oxycodone Hcl Immed Release 5 Mg Tablet) 5 mg PO Q6H PRN PRN Reason: Pain, Severe (Pain Scale 7-10) Last Admin: 06/28/22 06:47 Dose: 5 mg Sodium Chloride (0.9 % Sodium Chloride Flush 3 Ml [facility]) [facility] Last Admin: 06/28/22 08:45 Dose: 3 ml Home Medications Medication Instructions Recorded Confirmed Last Taken Type lisinopril 20 mg tablet 20 mg PO DAILY 06/26/22 06/26/22 06/26/22 History Physical Exam Vital Signs: Vital Signs: Last Vital Signs Temp 97.9 F 06/28/22 11:14 Pulse 96 06/28/22 11:14 Resp 17 06/28/22 11:14 BP 115/57 L 06/28/22 11:14 Pulse Ox 97 06/28/22 11:14 O2 Del Method 06/28/22 11:14 BMI result Body Mass Index 26.5 Const: General: cooperative HEENT: Head: Yes normal to inspection Face and sinus: Yes normal facial exam Mouth: Normal oral and palatal mucosa present Teeth and gingiva: dentition normal Eyes: General: appearance normal, both eyes and all related structures Pupils: Equal, round and reactive pupils present Resp: Effort & Inspection: normal respiratory effort Cardio: Rate: regular rate Rhythm: regular rhythm GI: Palpation (GI): Soft to palpation and nontender : General: Yes no CVA tenderness Back/Spine/Pelvis: Back: no CVA tenderness Skin: General skin exam: no rashes or lesions noted Neuro: General: moves all extremities Cranial nerves: Yes Equal, round and reactive pupils present Extrem: Other: reddened area lateral left leg, 3 x 5 cm Psych: Appearance: grossly normal Results Labs 06/27/22 05:56 06/27/22 05:56 Microbiology Microbiology Results: Microbiology 06/26/22 22:05 Urine clean catch - Urine malagon top Urine Culture - Preliminary Gram negative roxi Staphylococcus species 06/26/22 16:49 Blood - Venous Blood Culture - Preliminary No growth after 24 hours. 06/26/22 16:49 Blood - Venous Blood Culture - Preliminary No growth after 24 hours. Assessment and Plan (1) Leg wound, left: Status: Acute (2) Cellulitis: Status: Acute Patient has improving erythema in this chronic wound. Plan Another day IV antibiotics such as Vancomycin and piperacillin/tazobactam and then po Doxycycline and Augmentin for a week. Time Spent With Patient Time: Total time managing care of this patient today ____ minutes.
--- NOTE | 2022-06-28 14:53 | P.PNIM_ITS ---
Subjective Subjective Date of Service: 06/28/22 Interval History: All information via hourly sign language interpreter; no acute events overnight essentially no pain Review of Systems Denies chest pain Denies shortness of breath Denies nausea vomiting diarrhea Denies fever chills Physical Exam Vital Signs: Vital Signs: Last Vital Signs Temp 97.9 F 06/28/22 11:14 Pulse 96 06/28/22 11:14 Resp 17 06/28/22 11:14 BP 115/57 L 06/28/22 11:14 Pulse Ox 97 06/28/22 11:14 O2 Del Method 06/28/22 11:14 BMI result Body Mass Index 26.5 Const: Other: Awake alert no acute distress Resp: Other: Clear to auscultation bilaterally no rales rhonchi or wheezes Cardio: Other: No S4; positive S1-S2; S3 murmurs rubs or gallops GI: Other: Soft nontender nondistended normoactive bowel sounds Extrem: Other: Graft site left lower extremity excoriated and weepy with serosanguineous drainage. Assistance medial aspect of left lower leg from essentially mid calf to malleolus Objective Data Active Medications Acetaminophen (Acetaminophen 325 Mg Tablet) 650 mg PO Q6H PRN PRN Reason: Pain, Mild (Pain Scale 1-3) Last Admin: 06/27/22 20:44 Dose: 650 mg Documented By: LOBITO Docusate Sodium (Docusate Sodium 100 Mg Capsule) 100 mg PO DAILY PRN PRN Reason: Constipation Last Admin: 06/27/22 20:44 Dose: 100 mg Documented By: LOBITO Enoxaparin Sodium (Enoxaparin Sodium 40 Mg/0.4 Ml Syringe) 40 mg SUBCUT Q24H [facility] Last Admin: 06/27/22 20:45 Dose: 40 mg Documented By: LOBITO Linezolid (Zyvox/D5w) 600 mg in 300 mls @ 300 mls/hr IV Q12H [facility] Last Infusion: 06/28/22 12:02 Dose: 0 mls/hr Documented By: MARGO Piperacillin Sod/Tazobactam (Sod 3.375 gm/ Sodium Chloride) 50 mls @ 100 mls/hr IV Q6H [facility] Last Infusion: 06/28/22 09:37 Dose: 0 mls/hr Documented By: MARGO Lisinopril (Lisinopril 20 Mg Tablet) 20 mg PO DAILY [facility]; Protocol Last Admin: 06/28/22 08:45 Dose: 20 mg Documented By: MARGO Ondansetron HCl (Ondansetron Hcl 4 Mg/2 Ml Vial) 4 mg IVPUSH Q8H PRN PRN Reason: Nausea and Vomiting Oxycodone HCl (Oxycodone Hcl Immed Release 5 Mg Tablet) 5 mg PO Q6H PRN PRN Reason: Pain, Severe (Pain Scale 7-10) Last Admin: 06/28/22 06:47 Dose: 5 mg Documented By: LOBITO Sodium Chloride (0.9 % Sodium Chloride Flush 3 Ml Syringe) 3 ml IVFLUSH QSHIFT [facility] Last Admin: 06/28/22 08:45 Dose: 3 ml Documented By: MARGO Labs 06/27/22 05:56 06/27/22 05:56 Microbiology Microbiology Results: Microbiology 06/26/22 22:05 Urine Culture - Preliminary Urine clean catch - Urine malagon top Gram negative roxi Staphylococcus species 06/26/22 16:49 Blood Culture - Preliminary Blood - Venous No growth after 24 hours. 06/26/22 16:49 Blood Culture - Preliminary Blood - Venous No growth after 24 hours. Assessment and Plan (1) Cellulitis: Status: Acute (2) Hypertension: Status: Acute Plan 77-year-old Swazi-speaking female presents with complaints of left lower extremity infection. Approximately 3 years ago had a mole removed which developed complications requiring skin graft with the final surgery 2 years ago. Presents with an open excoriated/weepy area mid left gastrocs to medial malleoli. 1. Cellulitis left lower extremity -continue linezolid/Zosyn (vancomycin allergy) -switch to doxy upon DC with Augmentin -Xeroform dressing daily -patient to follow-up with [facility] in [place] for PCP in wound care 2. Hypertension -acceptable control current therapies -adjust as indicated Full code Lovenox Patient will require ongoing hospitalization for IV antibiotics to treat a left lower extremity cellulitis that has failed outpatient therapies Time Spent With Patient Time: Total time managing care of this patient today ____ minutes. Quality Stroke Does the patient have a stroke diagnosis?: No VTE Prior VTE?: No VTE Risk Level:: Medical - moderate - high VTE Device Contraindication: Treatment Not Indicated VTE Drug Contraindication: N/A - Med Ordered
--- NOTE | 2022-06-28 16:07 | MHC.CM.PN ---
IMM 06/28/22, CM MET W/PT AND DTR AT BEDSIDE [facility]IA [facility], PER DTR PT MOVED TO [facility] TO LIVE W/HER AND WAS LIVING W/ANOTHER DTR IN [place] PRIOR TO 2021, DTR REPORTS PT HAS A NEW PCP APPT ON 07/25 AT [place] [address] [facility], DTR DENIES HAVING BEEN GIVEN NAME OF PCP HOWEVER DID SAY THEY WILL TRY TO FIT HER IN SOONER SINCE SHE HAD A HOSPITAL ADMISSION. PT DENIES RECEIVING COVID VACCINE HOWEVER DID HAVE FLU SHOT THIS YEAR, PT CURRENTLY HAS NO HCP, PT EDUCATED ON AND DECLINES TO COMPLETE AT THIS TIME. ANTIC D/C HOME NO SERVICES W/DTR FOR TRANSPORT
[2022-06-28] MEDS: Enoxaparin Sodium 40 MG/0.4 ML SYRINGE SUBCUT (20:43)
[2022-06-29 03:20] VITALS: BP 145/71; PULSE 95; RESP 16; TEMP 36.6; O2SAT 98
[2022-06-29] MEDS: Piperacillin Sodium/Tazobactam 3.375 GM in 0.9 % Sodium Chloride 50 ML IV ×3 (04:21→15:02)
[2022-06-29] MEDS: Linezolid/D5W 600 MG/300 ML PIGGYBACK 300 MG IV (07:35)
[2022-06-29] MEDS: lisinopriL 20 MG TABLET PO (07:35)
[2022-06-29] MEDS: 0.9 % Sodium Chloride Flush 3 ML SYRINGE IVFLUSH (07:35)
[2022-06-29 08:00] VITALS: BP 149/75; PULSE 101; RESP 16; TEMP 36.1; O2SAT 96
--- NOTE | 2022-06-29 08:42 | PM.DS ---
DS: Providers Provider Date of Service: 06/29/22 Date of admission: 06/26/22 21:21 Date of discharge: 06/29/22 Primary care physician: Jessica Physician Consults: 06/26/22 21:17 Consult to Infectious Diseases Routine Consulting Provider: Rehana Bush Reason for consultation: Skin graft rejection/infected DS: Diagnosis Discharge Diagnosis (1) Leg wound, left: Status: Acute (2) Cellulitis: Status: Acute (3) Hypertension: Status: Acute DS: Summary Hospital Course Hospital Course: ?77-year-old female with past medical history of hypertension presents to the hospital with complaints of left lower extremity pain.? Patient is mostly Japanese speaking, the history is obtained with the help of her granddaughter who lives with her and is at bedside.? Patient apparently had a left lower extremity mole about 3 years ago, resected with complications, and was given a? synthetic skin graft with a final surgery about 2 years ago. ? this procedure was done in [place].? per patient about 3 months ago she started having leg pain, a small wound and progressively worsening drainage and redness in the left lower extremity.? They were seen at in the ED in March and at that time were discharged on p.o. antibiotics, and was given referral to wound clinic.? At that time patient did not have insurance and therefore did not follow-up with wound care or primary care.? she reports that she finally has insurance and therefore given the worsening wound and her leg she decided to come to the hospital. Hospital Course Admitted to the general medical floor on IV vanco and Zosyn. Seen in consult by Infectious Disease recommended completing 48 hours of IV vanco and Zosyn and discharge with doxy and Augmentin x1 week. Family has been instructed on dressing changes as they will be providing care until patient can be seen by PCP. Goal is the patient be enrolled in [facility]'s wound clinic upon meeting her new PCP. At this time she is medically acceptable for discharge and family and patient are in agreement with the plan Time Spent with Patient Time attestation: Total time managing care of this patient today ____ minutes. Discharge coordination time: Greater than 30 minutes Quality: Safe Use of Opioids Does Pt have an Active Cancer Diagnosis on the Problem List?: No Quality: Stroke Does the patient have a stroke diagnosis?: No Physical Exam Vital Signs: Vital Signs: Last Vital Signs Temp 96.9 F 06/29/22 08:00 Pulse 101 H 06/29/22 08:00 Resp 16 06/29/22 08:00 BP 149/75 H 06/29/22 08:00 Pulse Ox 96 06/29/22 08:00 O2 Del Method 06/29/22 08:00 BMI result Body Mass Index 26.5 Const: Other: Awake alert no acute distress Resp: Other: Clear to auscultation bilaterally no rales rhonchi or wheezes Cardio: Other: No S4; positive S1-S2; S3 murmurs rubs or gallops GI: Other: Soft nontender nondistended normoactive bowel sounds Extrem: Other: Graft site left lower extremity excoriated and weepy with serosanguineous drainage. Erythema medial aspect of left lower leg from essentially mid calf to malleolus DS: Data Data Completed and Pending Labs on day of discharge: Preliminary micro results at discharge 06/26/22 16:49 Blood Culture - Preliminary Blood - Venous No growth after 48 hours. 06/26/22 16:49 Blood Culture - Preliminary Blood - Venous No growth after 48 hours. Discharge Plan Discharge Anticipated Discharge Date/Time: 06/29/22 14:47 Patient Disposition: Home, Self-Care Discharge Diagnosis: Cellulitis left lower extremity Referrals: Physician,None [Primary Care Provider] - 1 Week Discharge Medications: New oxycodone 5 mg Tablet 5 mg PO Q6H PRN (Reason: Pain, Severe (Pain Scale 7-10)) Qty: 30 0RF Rx Instructions: Partial Fill upon patient request. amoxicillin-pot clavulanate 875-125 mg tablet 1 tab PO BID Qty: 14 0RF Continued lisinopril 20 mg Tablet 20 mg PO DAILY Discharge Orders: Discharge Order (Routine); Ordered 06/29/22 Ordered By: Igor Price Diet: Advance to usual diet Activity on Discharge: As tolerated Stand Alone Forms: Patient Portal Discharge page Care Plan Goals: Complete course of doxycycline twice daily for 7 days along with Augmentin twice daily for 7 days Health Concerns: Follow-up with [facility] as soon as appointment available; they will refer you to wound care clinic Plan of Treatment: Continue dressings; Telfa followed by loose Akin wrap. Moistened dressing before removal. Assessment: See discharge summary
--- NOTE | 2022-06-29 10:17 | MHC.CM.PN ---
ANTIC PT WILL D/C HOME W/DTR'S SUPPORT AND DTR FOR [facility] PCP OFFICE TRYING TO GET PT IN SOONER THAN 07/25.
[2022-06-29 12:00] VITALS: BP 130/59; PULSE 94; RESP 16; TEMP 36.3; O2SAT 98
== END 2022-06-29 16:10 | disposition home or self-care (01) | DRG 920 ==
LOC: HO.ED 20:55 → HO.EDOVER 21:28 → HO.S3 06-27 13:40
PROVIDERS: Physician Assistant; Admitting Provider Internal Medicine; Emergency Provider Internal Medicine; Visit Provider Hospitalist
DX: T86.822 Skin graft (allograft) (autograft) infection (principal); L03.116 Cellulitis of left lower limb; I10 Essential (primary) hypertension; Z20.822 Contact with and (suspected) exposure to COVID-19; Z79.899 Other long term (current) drug therapy
CPT/HCPCS: 36415; 73590; 80048; 80076; 81001; 83605; 83735; 85025; 85652; 86140; 87040; 87086; 87088; 87186; 87635; 99285; J0690; J1650; J2020; J2270; J2405; J2543